=== PATIENT | female | born 1990 | race Caucasian/White ===

== ENCOUNTER 2023-12-21 09:57 | Day surgery (SDC) | payer MEDICAID ==
--- NOTE | 2023-12-21 09:07 | HP ---
DATE OF SURGERY: 12/21/2023 HISTORY OF PRESENT ILLNESS: The patient has some nausea, epigastric pain, occasional vomiting after she eats. It was a few years ago when she had the same problem. Last upper endoscopy was 2019. PAST MEDICAL HISTORY: Wicho's disease. Gastroesophageal reflux disease. History of ulcers in the past. Heartburn. Anxiety. PAST SURGICAL HISTORY: EGD, colonoscopy in the past. She had a polyp in the past. MEDICATIONS: Omeprazole. ALLERGIES: LEXAPRO. FAMILY HISTORY: Negative in regards to this problem. SOCIAL HISTORY: Vapes. No alcohol abuse. REVIEW OF SYSTEMS: Twelve systems reviewed. No chest pain or palpitations. Other systems negative or noncontributory as above and per preadmission questionnaire. PHYSICAL EXAMINATION: Height 5 feet 2 inches. BMI 21.95. GENERAL: No acute distress. HEENT: Sclerae nonicteric. EOMI. Oral mucous membranes moist. NECK: No JVD. CHEST: Equal excursion, nonlabored breathing. CVS: Regular rate and rhythm. ABDOMEN: Soft. She was nontender on the office visit. She does have history of epigastric pain in the past. EXTREMITIES: No significant edema. NEURO: Alert, oriented, moving extremities symmetrically. PSYCH: Appropriate mood and affect. SKIN: Dry. IMPRESSION: Epigastric pain, history of nausea and vomiting. She is in need of EGD to evaluate esophagitis, peptic ulcer disease, gastritis or other etiology. She was shown the risk sheet, explained the procedure in detail including but not limited to bleeding or infection, risk of bowel injury or perforation, risk of missed or nondiagnosis or incomplete exam, possibly requiring barium swallow, other studies or procedures. General risk of anesthesia or sedation, possible inability to diagnose the etiology of her symptoms. She understands and agrees to the planned procedure, will proceed with EGD possible biopsy as an outpatient. If this ends up being negative, she may need consideration of gallbladder work up, other studies or referrals. She understands and agrees to the planned procedure, will proceed with outpatient EGD possible biopsy.
[2023-12-21] MEDS ORDERED: Lactated Ringers 1,000 ML IV ONE (10:51)
[2023-12-21] MEDS: Lactated Ringers 1,000 ML IV SCH (10:53)
[2023-12-21 10:55] LABS: HCG URINE TEST NEGATIVE (NEGATIVE)
[2023-12-21] MEDS ORDERED: Xylocaine-Mpf 2% 5 Ml Vial ONE (12:46)
[2023-12-21] MEDS ORDERED: DIPRIVAN 200 MG/20 ML IV ONE (12:57)
[2023-12-21 13:32] VITALS: RESP 16
[2023-12-21 13:37] VITALS: BP 111/75; PULSE 77; TEMP 96.9; O2SAT 98
--- NOTE | 2023-12-21 15:20 | OP ---
SURGERY DATE/TIME: 12/21/2023 1246 PREOPERATIVE DIAGNOSIS: History of epigastric pain, nausea and vomiting unclear etiology need for upper endoscopy to evaluate for gastritis, peptic ulcer disease, esophagitis or other etiology. POSTOPERATIVE DIAGNOSES: 1) Minimal to mild gastritis. 2) Distal esophageal erythema without erosions or mass. 3) Gastroesophageal junction about 37 cm. PROCEDURES: 1) EGD with cold biopsy of small bowel to evaluate for celiac sprue. 2) Cold biopsy of the antrum to evaluate for Helicobacter pylori. 3) Cold biopsy distal esophagus to evaluate for histology. SURGEON: Dr. Toni Marquez M.D. ANESTHESIA: MAC. ESTIMATED BLOOD LOSS: Minimal. INDICATIONS: As noted above. Risks and benefits explained in detail and not limited to and consent obtained. DESCRIPTION OF PROCEDURE AND FINDINGS: The patient is taken to the endoscopy room. MAC anesthesia introduced. After official time out and no disagreement with planned procedure, a bite block positioned. Video gastroscope easily passed down the esophagus through the patent pylorus to the third and fourth portion of the duodenum. Duodenum grossly unremarkable. Given her symptom complaints, cold biopsy taken to evaluate for celiac sprue. Good hemostasis noted. Scope pulled back in the stomach. There was some gastric erythema, minimal to mild gastritis. Cold biopsy taken to evaluate for Helicobacter pylori. On retroflex, the gastroesophageal junction is snug against the scope. No signs of any hiatal hernia. There were no signs of any ulcers or mases at this time. The scope pulled back. Gastroesophageal junction 37 cm. There was some minimal to mild distal erythema in the esophagus. No signs of any erosions, ulcers or masses. Cold biopsy taken for path. Good hemostasis noted. The remainder of the esophagus grossly unremarkable. No signs of any other mucosal issues. Scope withdrawn. The patient tolerated the procedure well. There was no family to discuss the findings with out in the waiting area.
== END 2023-12-21 13:49 | disposition home or self-care (01) ==
LOC: SDC 09:57
PROVIDERS: ATTEND Surgery
DX: K29.70 Gastritis, unspecified, without bleeding (principal); R10.13 Epigastric pain; R11.2 Nausea with vomiting, unspecified; K22.2 Esophageal obstruction
CPT/HCPCS: 81025; J2704